=== PATIENT | female | born 2000 ===

== ENCOUNTER 2020-07-10 02:59 | Inpatient (IN) | payer OTHER, SELFPAY ==
[2020-07-10] MEDS ORDERED: LACTATED RINGERS 2,000 ML ONE (03:16)
[2020-07-10] MEDS ORDERED: fentaNYL 100 MCG/2 ML INJ ONE (03:42)
[2020-07-10] MEDS ORDERED: fentaNYL 100 MCG/2 ML INJ IV ONE (03:55)
[2020-07-10] MEDS ORDERED: LIDOCAINE (2%) 20 MG/1 ML VIAL 20 ML MDV INFILTRATI ONE (04:00)
[2020-07-10] MEDS ORDERED: ePHEDrine SULFATE 50 MG/1 ML INJ IV PRN (04:00)
[2020-07-10] MEDS ORDERED: fentaNYL 100 MCG/2 ML INJ IV PRN (04:00)
[2020-07-10] MEDS ORDERED: OXYTOCIN DRIP 30 UNITS/500 ML BAG IV SCH ×2 (04:00)
[2020-07-10] MEDS ORDERED: MINERAL OIL 30 ML ORAL LIQD PO PRN (04:00)
[2020-07-10] MEDS ORDERED: TERBUTALINE 1 MG/1 ML INJ SUB-Q PRN (04:00)
[2020-07-10] MEDS ORDERED: LACTATED RINGERS 1,000 ML IV SCH (04:00)
[2020-07-10] MEDS ORDERED: ONDANSETRON 4 MG/2 ML INJ IV PRN ×2 (04:00→04:42)
[2020-07-10 04:15] LABS: Hematocrit 32.7 % (30.3-42.9); Mean Corpuscular HGB Conc 34 % (30-34); Mean Corpuscular Volume 88 fl (79-97); Platelet Count 255 K/mm3 (140-440); Red Blood Count 3.71 M/mm3 (3.65-5.03); Red Cell Distribution Width 14.6 % (13.2-15.2)
[2020-07-10] MEDS ORDERED: MAGNESIUM HYDROXIDE (MOM) ORAL LIQD UDC PO PRN (04:42)
[2020-07-10] MEDS ORDERED: WITCH HAZEL/ GLYCERIN PAD TP PRN (04:42)
[2020-07-10] MEDS ORDERED: LANOLIN/ZINC/DIMETHICONE (LANSINOH) 7 GM TP PRN (04:42)
[2020-07-10] MEDS ORDERED: HYDROcodone/ACETAMINOPHEN 5-325 MG TAB PO PRN (04:42)
--- NOTE | 2020-07-10 04:55 | History and Physical Report ---
History of Present Illness Date of examination: 07/10/20 Date of admission: 07/10/2020 Chief complaint: Leaking of water from vagina. History of present illness: 20 year old presents with complaint of leaking of fluid from vagina and contractions. Patient received care at [facility] and she brings records with her. LMP 11/03/2019. EDC 07/21/2020. significant for the following: UTI (treated with Macrobid). labs are as follows: O+, antibody screen negative, rubella immune, hepatitis B surface antigen negative, HIV negative, RPR nonreactive, gonorrhea negative, chlamydia negative, 1 hour sugar test 89, GBS negative. Past History Past Medical History: no pertinent history Past Surgical History: no surgical history [employer] History: denies: chlamydia, gonorrhea, hepatitis B, hepatitis C, herpes, HIV, syphilis, trichomonas Family/Genetic History: none Social history: lives with family, full code. denies: smoking, alcohol abuse, prescription drug abuse, IV drug use - Obstetrical History Expected Date of Delivery: 07/21/20 Actual Gestation: 38 Week(s) 3 Day(s) : 2 Para: 1 Hx # Term Pregnancies: 1 Number of Pregnancies: 0 Spontaneous Abortions: 0 Induced : 0 Number of Living Children: 1 Medications and Allergies Allergies Allergy/AdvReac Type Severity Reaction Status Date / Time No Known Allergies Allergy Unverified 07/10/20 03:33 Home Medications Medication Instructions Recorded Confirmed Last Taken Type Vit No.129/Iron/Folic 1 tab PO DAILY 07/10/20 07/10/20 07/06/20 History [ One Daily Tablet] Active Meds: Active Medications Hydrocodone Bitart/Acetaminophen ([place] 5/325) 2 each PO Q6H PRN PRN Reason: Pain, Moderate (4-6) Ephedrine Sulfate (Ephedrine Sulfate) 10 mg IV Q2M PRN PRN Reason: Hypotension Oxytocin/Sodium Chloride (Pitocin/Ns 30 Unit/500ml) 30 units in 500 mls @ 2 mls/hr IV TITR SAUD; Protocol Lactated Ringer's (Lactated Ringers) 1,000 mls @ 125 mls/hr IV DIRECT SAUD Oxytocin/Sodium Chloride (Pitocin/Ns 30 Unit/500ml) 30 units in 500 mls @ 40 mls/hr IV TITR SAUD; Protocol Ibuprofen (Ibuprofen) 600 mg PO Q6HR SAUD Magnesium Hydroxide (Milk Of Magnesia) 30 ml PO HS PRN PRN Reason: Constipation Multi-Ingredient Ointment (Lansinoh) 1 applic TP PRN PRN PRN Reason: Sore Nipples Sodium Chloride (Sodium Chloride Flush Syringe 10 Ml) 10 ml IV PRN NR Stop: 07/11/20 04:59 Witch Erika/Glycerin (Tucks Pad) 1 each TP PRN PRN PRN Reason: Hemorrhoid/cleansing/soothing Review of Systems All systems: negative (contactions and leaking of fluid) - Vital Signs Vital signs: Vital Signs Pulse BP 85 99/55 07/10/20 04:00 07/10/20 04:00 Temp Pulse Resp BP Pulse Ox 83 110/64 07/10/20 04:28 07/10/20 04:28 - Physical Exam Abdomen: Positive: normal appearance, soft. Negative: distention, tenderness, guarding, rigidity Genitourinary (Female): Positive: normal external genitalia, normal perenium. Negative: perineal/vulvar lesions Vagina: Positive: other (clear fluid leaking from vagina) Uterus: Positive: enlarged Extremities: Positive: normal. Negative: tenderness, edema - Obstetrical FHR: category 1 Uterine Contraction Monitor Mode: External Cervical Dilatation: 10 Cervical Effacement Percentage: 100 station: 0 Uterine Contraction Pattern: Regular Results Result Diagrams: 07/10/20 03:35 Abnormal lab results 07/10/20 Range/Units 03:35 WBC 13.8 H (4.5-11.0) K/mm3 All other labs normal. Assessment and Plan A: at 38 weeks, 3 days gestation. Spontaneous rupture of membranes. Active labor. GBS unknown. P: Admit. EFM. Anticipate vaginal .
--- NOTE | 2020-07-10 04:55 | Procedure Note ---
OB Delivery Note - Delivery Date of Delivery: 07/10/20 Surgeon: RAMA WELDON Estimated blood loss: 200cc - Vaginal Delivery presentation: vertex Delivery position: OA Intrapartum events: precipitous labor- <3hr Delivery induction: none Delivery monitor: external FHT Route of delivery: Delivery placenta: spontaneous Delivery cord: nuchal cord (loose x1), 3 umbilical vessels Episiotomy: none Delivery laceration: none Anesthesia: local Delivery comments: Spontaneous vaginal delivery at 04:25 of liveborn male infant weighing 2.852 kg over intact perineum with apgars of 8/9. Patient had precipitous delivery. of baby was atraumatic; loose nuchal cord times 1, manually reduced. Baby placed skin to skin with mom immediately after delivery; spontaneous cry and respirations. Baby dried with warm blanket and bulb suctioned. 3 vessel cord double clamped and cut and baby taken to warmer for further suctioning. Cord blood obtained. Spontaneous delivery of intact placenta and membranes. No lacerations noted. Vaginal sweep negative. Sponge count correct. Mother and baby stable.
[2020-07-10] MEDS: IBUPROFEN 600 MG TAB PO SCH ×3 (07:52→23:51)
[2020-07-10 19:49] LABS: Hematocrit 29.9 % (30.3-42.9); Hemoglobin 10.2 gm/dl (10.1-14.3)
[2020-07-11] MEDS: IBUPROFEN 600 MG TAB PO SCH (10:30)
--- NOTE | 2020-07-11 10:34 | Discharge Summary ---
Providers - Providers Date of Admission: 07/10/20 04:32 Date of discharge: 07/11/20 Attending physician: HANS ARIAS Primary care physician: HANS ARIAS Hospitalization Reason for admission: rupture of membranes Delivery: Episiotomy: none Laceration: none Other procedures: none complications: none Discharge diagnosis: IUP at term delivered baby: male Hospital course: See admission H & P; OB delivery summary and PP progress notes Condition at discharge: Good Disposition: DC-01 TO HOME OR SELFCARE - Discharge Diagnoses (1) Status post normal vaginal delivery Status: Acute Plan - Provider Discharge Summary Activity: routine, no sex for 6 weeks, no heavy lifting 4 weeks, no strenuous exercise Diet: other (Iron rich diet) Instructions: routine Additional instructions: [] Smoking cessation referral if applicable(refer to patient education folder for contact #) [] Refer to [facility]'s [facility] Booklet Call your doctor immediately for: * Fever > 100.5 * Heavy vaginal bleeding ( >1 pad per hour) * Severe persistent headache * Shortness of breath * Reddened, hot, painful area to leg or breast - Follow up plan Follow up: HANS ARIAS MD [Primary Care Provider] - 6 Weeks Forms: [facility] Discharge Summary
[2020-07-11 17:30] VITALS: BP 98/65
== END 2020-07-11 18:27 | disposition home or self-care (01) | DRG 807 ==
LOC: TRG 02:59 → LD 03:18 → TRG 04:32 → LD 04:32 → OB 09:18
PROVIDERS: ADMIT Obstetrics & Gynecology; ATTEND Obstetrics & Gynecology
PROC: 10E0XZZ Delivery of Products of Conception, External Approach (ICD-10-PCS; principal; 2020-07-10)
DX: O42.02 Full-term premature rupture of membranes, onset of labor within 24 hours of rupture (principal); Z37.0 Single live birth; Z3A.38 38 weeks gestation of pregnancy; O62.3 Precipitate labor; O69.81X0 Labor and delivery complicated by cord around neck, without compression, not applicable or unspecified
CPT/HCPCS: 36415; 85014; 85018; 85027; 86850; 86900; 86901; G0378; J3010; U0003